=== PATIENT | male | born 1980 | race Caucasian/White ===

== ENCOUNTER 2016-11-25 10:53 | Inpatient (IN) | payer MEDICAID, OTHER ==
[2016-11-25 11:14] VITALS: RESP 18
--- NOTE | 2016-11-25 12:47 | C.PDOC ---
History Of Present Illness 36 yr old male presents to the ER requesting detox from heroin. Patient reports last use was today around 6am. Otherwise, Patient denies SI, HI, hallucinations , chest pain, palpitations, SOB, nausea, vomiting, abdominal pain, headache, weakness or numbness. Time Seen by Provider: 11/25/16 11:44 Chief Complaint (Nursing): Substance Abuse History Per: Patient History/Exam Limitations: no limitations Onset/Duration Of Symptoms: Days, Sudden Onset (Last use 6am) Current Symptoms Are (Timing): Still Present Suicide/Self Injury Attempted (Context): None Past Medical History Reviewed: Historical Data, Nursing Documentation, Vital Signs Vital Signs: Last Vital Signs Temp 98.3 F 11/25/16 11:12 Pulse 69 11/25/16 11:12 Resp 18 11/25/16 11:12 BP 145/88 11/25/16 11:12 Pulse Ox 99 11/25/16 13:01 - Medical History PMH: Depression Family History: States: No Known Family Hx - Social History Hx Alcohol Use: No Hx Substance Use: Yes (heroin and crack) - Immunization History Hx Tetanus Toxoid Vaccination: No Hx Influenza Vaccination: No Hx Pneumococcal Vaccination: No Review Of Systems Except As Marked, All Systems Reviewed And Found Negative. Cardiovascular: Negative for: Chest Pain, Palpitations Respiratory: Negative for: Shortness of Breath Gastrointestinal: Negative for: Nausea, Vomiting, Abdominal Pain Neurological: Negative for: Weakness, Numbness, Headache Psych: Negative for: Suicidal ideation Physical Exam - Physical Exam Appears: Non-toxic, No Acute Distress Skin: Warm, Dry, No Rash Head: Atraumatic, Normacephalic Eye(s): bilateral: PERRL Ear(s): Bilateral: Normal Nose: No Flaring Oral Mucosa: Moist, No Drooling Throat: No Erythema, No Exudate, No Drooling Neck: Supple Chest: Symmetrical, No Tenderness Cardiovascular: Rhythm Regular, No Murmur Respiratory: No Decreased Breath Sounds, No Accessory Muscle Use, No Rales, No Rhonchi, No Stridor, No Wheezing Gastrointestinal/Abdominal: Soft, No Tenderness, No Distention, No Guarding, No Rebound Back: No CVA Tenderness Extremity: Normal ROM, No Pedal Edema, No Deformity, No Swelling Neurological/Psych: Oriented x3, Normal Speech, Normal Motor, Normal Sensation, Normal Reflexes ED Course And Treatment - Laboratory Results Result Diagrams: 11/25/16 12:50 11/25/16 12:50 Lab Interpretation: Normal O2 Sat by Pulse Oximetry: 99 (RA) Pulse Ox Interpretation: Normal Progress Note: AT 12:51, pt appears appropriate, not in any apparent distress. Afebrile, hemodynamicaly stable. Non-toxic. Neuorlogicaly intact. Blood work review, pt is medically cleared for psych eval and further tx/admission. AT 13: 20, Pt was seen by older worker specialist Corinna and admission arranged to s/o Dr. Larsen with Dx: Acute opioid dependance. Medical Decision Making Medical Decision Making: PLAN: * Alcohol Serum * Drug Screen * CBC * CMP * Urinalysis Disposition - Disposition Disposition: HOSPITALIZED Disposition Time: 13:40 Condition: STABLE Forms: [facility] ([facility]) - Clinical Impression Clinical Impression: Opioid dependence - PA / DIRECTOR GEOTHERMAL OPERATIONS / Resident Statement MD/DO has reviewed & agrees with the documentation as recorded. - Scribe Statement The provider has reviewed the documentation as recorded by the Scribe Scarlet Mitchell All medical record entries made by the Scribe were at my direction and personally dictated by me. I have reviewed the chart and agree that the record accurately reflects my personal performance of the history, physical exam, medical decision making, and the department course for this patient. I have also personally directed, reviewed, and agree with the discharge instructions and disposition.
[2016-11-25 12:55] LABS: BASO # 0.1 K/uL (0.0-0.2); BASO % 0.8 % (0.0-2.0); EOS % 0.6 % (0.0-4.0); LYMPH # 2.2 K/uL (1.0-4.3); LYMPH % 28.8 % (20.0-40.0); MEAN CELL VOLUME 90.5 fL (80.0-94.0); MEAN CORPUSCULAR HEMOGLOBIN 30.9 pg (27.0-31.0); MEAN CORPUSCULAR HGB CONC 34.1 g/dL (33.0-37.0); MEAN PLATELET VOLUME 7.8 fL (7.2-11.7); MONO # 0.5 K/uL (0.0-0.8); MONO % 6.9 % (0.0-10.0); RED CELL DISTRIBUTION WIDTH 13.5 % (11.5-14.5); WHITE BLOOD COUNT 7.6 K/uL (4.8-10.8)
[2016-11-25 12:59] LABS: RBC URINE 1 /hpf (0-3); URINE BILIRUBIN NEGATIVE (NEGATIVE); URINE BLOOD NEGATIVE (NEGATIVE); URINE COLOR Yellow (YELLOW); URINE GLUCOSE (UA) NORMAL (Normal); URINE KETONE NEGATIVE (NEGATIVE); URINE LEUKOCYTE ESTERASE NEG Leu/uL (Negative); URINE PROTEIN NEGATIVE (NEGATIVE); WBC URINE 1 /hpf (0-5)
[2016-11-25 13:03] LABS: CHLORIDE 102 mmol/L (98-107); POTASSIUM 3.9 mmol/L (3.6-5.2); SODIUM 142 mmol/L (132-148)
[2016-11-25 13:06] LABS: ALB/GLOB RATIO 1.3 (1.0-2.1); ALKALINE PHOSPHATASE 91 U/L (38-126); ALT/SGPT 55 U/L (21-72); AST/SGOT 34 U/L (17-59); BILIRUBIN,TOTAL 0.7 mg/dL (0.2-1.3); BLOOD UREA NITROGEN 10 mg/dL (9-20); CALCIUM 9.3 mg/dl (8.6-10.4); CARBON DIOXIDE 27 mmol/L (22-30); GFR AFRICAN-AMERICAN > 60; GLUCOSE,RANDOM 66 mg/dL (75-110); TOTAL PROTEIN 7.1 g/dL (6.3-8.3)
[2016-11-25 13:07] LABS: ALCOHOL SERUM < 10 mg/dl (0-10)
--- NOTE | 2016-11-25 16:36 | PCM.BM ---
<Rupinder Gonzales - Last Filed: 11/25/16 16:36> Treatment Plan Problems - Problems identified on initial assessmt Potential for opiate withdrawal Date Initiated: 11/25/16 Time Initiated: 16:36 Assessment reference: NA Status: Active Priority: 1 Treatment assets and liabiliti Patient Assests: ADL independent, negotiates basic needs, cognitively intact Patient Liabilities: substance abuse - Milieu Protocol Maintain good personal hygiene: daily Encourage regular showers, daily Remind patient to perform daily oral care, daily Assist patient to perform ADL's Maintain personal safety: every shift Educate patient to report safety concerns to staff, every shift Monitor environment for contraband/sharps Medication safety: Monitor for expected outcome, potential side effects: every shift, Assess barriers to learning: every shift, Assess readiness for medication education: every shift <Mayelin Larsen - Last Filed: 11/26/16 09:45> - Diagnosis (1) Opioid dependence Status: Acute Interventions: 11/26/16 09:45 * Assess 7x/week regarding severity of withdrawal * Educate regarding risks, benefits, side effects and alternatives of medications * Use Motivational Interviewing for abstinence * Use CBT for relapse prevention * Medication management for withdrawal symptoms * Encourage medication assisted treatment * <Diamante Prieto - Last Filed: 11/26/16 11:05> Family Contact Family involvement: Toddy/SO not involved Family contact: Patient declines to allow family contact at present - Goals for Treatment Patient goals for treatment: Complete detox and transition to [facility]. Discharge/Continuing Care - Education Needs Education Needs: Patient Medication, Patient Diagnosis/Disease Process, Patient Coping Skills, Patient Anger Management skills, Patient Placement options, Patient Community resources - Discharge Discharge Criteria: Normal sleep pattern, No longer exhibiting s/s of withdrawal , Reduction of target symptoms Discharge to:: Substance Abuse Rehab - Treatment Team Participation Patient/Family/SO Statement: 11/26/16 11:05 "I wanna go back to [facility]. I went to them 1st but they said I needed to detox and then go there." Discussed with Family/SO: No Was Patient/Family/SO present at Treatment Team Meeting: Yes
[2016-11-25] MEDS ORDERED: Aluminum Hydroxide/Magnesium Hydroxide Susp (30 mL) PO PRN (21:46)
--- NOTE | 2016-11-26 12:50 | PCM.PSYCH ---
Initial Psychiatric Evaluation - Initial Psychiatric Evaluation Type of Admission: Voluntary Legal Status: Capacity Chief Complaint (in patient's own words): "I need to stop this" History of Present Illness and Precipitating Events: The patient is seen, chart reviewed and case discussed. This is a 36-year-old male, single with 2 children aged 4 and 5, unemployed the patient moved from [place] to [facility] and he was told to go to rehabilitation at [facility]. Staff at [facility] brought to him to our hospital for detox before he begins to rehabilitation. The patient admits to using 10-12 bags of IV heroine and he started when he was 10 years old. He also smokes crack cocaine daily for the last 6 years, marijuana "many years" and cigarettes 1 pack per day. He denies alcohol and other drug use. He has never been to methadone or Suboxone programs but he was in detox twice while in [facility]. He denies psych symptoms. Past psych history: Denies Family psych history: Denies Medical history: 3 surgeries in right knee Current Medications: Active Medications Generic Name Dose Route Start Last Admin Trade Name Freq PRN Reason Stop Dose Admin Al Hydrox/Mg Hydrox/Simethicone 30 ml 11/25/16 21:46 Maalox 30 Ml PO TID PRN Indigestion / Heartburn Clonidine HCl 0.1 mg 11/25/16 21:46 Catapres PO Q8 PRN COWS Score More or Equal to 5 Hydroxyzine HCl 50 mg 11/25/16 21:47 11/25/16 22:03 Atarax PO 50 mg Q6H PRN Administration Anxiety Ibuprofen 600 mg 11/25/16 21:47 Motrin Tab PO Q6H PRN Pain, moderate (4-7) Loperamide HCl 2 mg 11/25/16 21:46 Imodium PO Q8 PRN Diarrhea Methadone HCl 15 mg 11/26/16 09:45 11/26/16 10:08 Methadone PO 11/30/16 09:44 15 mg Q24H XIOMY Administration Taper Nicotine 1 patch 11/25/16 17:15 11/26/16 10:08 Nicoderm Cq TD 1 patch DAILY XIOMY Administration Ondansetron HCl 4 mg 11/25/16 21:46 Zofran Tab PO Q8 PRN Nausea/Vomiting Trazodone HCl 50 mg 11/25/16 21:26 11/25/16 22:03 Desyrel PO 50 mg HS PRN Administration Insomnia Past Psychiatric History - Past Psychiatric History Previous Treatment History: None Pertinent Medical Hx (Current Medical&Sleep Prob, Allergies): Allergies Allergy/AdvReac Type Severity Reaction Status Date / Time No Known Allergies Allergy Verified 11/25/16 11:14 No Known Home Med 11/25/16 Review of Systems - Neurological Neurological: UNREMARKABLE - Psychiatric Psychiatric: Abnormal Sleep Pattern, Anxiety, Difficulty Concentrating. absent : Depression, Hallucinations, Homicidal Ideation, Paranoia, Suicidal Ideation Mental Status Examination - Personal Presentation Personal Presentation: Looks stated age - Affect Affect: Constricted - Motor Activity Motor Activity: Calm - Reliability in Providing Information Reliability in Providing Information: Good - Speech Speech: Organized - Mood Mood: Anxious - Formal Thought Process Formal Thought Process: No Impairment - Cognitive Functions Orientation: Person, Place, Situation, Time Sensorium: Alert Attention/Concentration: Attentive Estimate of Intelligence: Average Judgement: Intact, as evidence by: Insight regarding need for hospitalization Memory: Recent intact, as evidence by: Ability to recall events of the day, Remote intact, as evidenced by: Abilit to recall sig. life events - Risk Risk: Withdrawal, Diminished functioning - Strength & Assets Inventory Strength & Assets Inventory: Cooperative - Limitations Limitations: Living alone DSM 5 DX - DSM 5 DSM 5 Diagnosis: Opioid withdrawal Opioid use d/o - severe Cocaine use d/o - severe Tobacco use d/o - severe - Recommended/Plan of Treatment Treatment Recommendations and Plan of Treatment: Subutex detox As needed medications Gabapentin for augmentation Attend groups and activities Supportive therapy and psychoeducation [place] for abstinence CBT for relapse prevention Encourage MAT Refer to rehab or IOP Attend self-help groups as well 34 min Projected ELOS: 4-5 days Prognosis: Good with treatment Discharge Plan and Discharge Criteria: No wdw sxs Refer back to rehab - Smoking Cessation Smoking Cessation Initiated: Yes
--- NOTE | 2016-11-27 12:33 | PCM.PYCHPN ---
Psychiatric Progress Note - Psychiatric Progress Note Patient seen today, length of contact: 16 min Patient Chief Complaint: "I am better" Problems Identified/Issues Discussed: The pt is seen, chart reviewed, case discussed with staff. The pt is compliant with medications and reports no side-effects. Symptoms are improving but needs more time to stabilize. After care discussed, support and psychoeducation given. Medication Change: Yes (detox changes daily) Medical Record Reviewed: Yes Mental Status Examination - Cognitive Function Orientation: Person, Place, Situation, Time Memory: Intact Attention: WNL Concentration: Poor Association: WNL Fund of Knowledge: WNL - Mood Mood: Anxious - Affect Affect: Constricted - Speech Speech: Appropriate - Formal Thought Process Formal Thought Process: No Impairment - Suicidal Ideation Suicidal Ideation: No - Homicidal Ideation Homicidal Ideation: No Goal/Treatment Plan - Goal/Treatment Plan Need for Continued Stay: Discharge may exacerbated symptoms, Severe functional impairment Progress Toward Problem(s) and Goals/Treatment Plan: Subutex detox As needed medications Gabapentin for augmentation Attend groups and activities Supportive therapy and psychoeducation [place] for abstinence CBT for relapse prevention Encourage MAT Refer to rehab or IOP Attend self-help groups as well 34 min Estimated Date of D/C: 11/29/16
[2016-11-27 14:44] VITALS: O2SAT 99
--- NOTE | 2016-11-28 08:43 | PCM.PYCHDC ---
Mental Status Examination - Mental Status Examination Orientation: Person, Place, Situation, Time Memory: Intact Mood: Neutral Affect: Broad Speech: Appropriate Attention: WNL Concentration: WNL Association: WNL Fund of Knowledge: WNL Formal Thought Process: No Impairment Suicidal Ideation: No Current Homicidal Ideation?: No Discharge Summary - Discharge Note Reason for Hospitalization: Heroin detox Consultations:: List each consultation separately and include: 1. Reason for request. 2. Findings. 3. Follow-up Summary of Hospital Course include:: 1. Description of specific treatment plan utilized for patients during their course of treatmen. 2. Summarize the time- course for resolution of acute symptoms and/or regressed behaviors. 3. Describe issues identified and worked on during hospitalization. 4. Describe medication utilized. 5. Describe medical problems identified and treated. 6. Reassessment of suicide risk Summary of Hospital Course: The patient is seen, chart reviewed and case discussed. On admission: This is a 36-year-old male, single with 2 children aged 4 and 5, unemployed the patient moved from [place] to [facility] and he was told to go to rehabilitation at [facility]. Staff at [facility] brought to him to our hospital for detox before he begins to rehabilitation. The patient admits to using 10-12 bags of IV heroine and he started when he was 10 years old. He also smokes crack cocaine daily for the last 6 years, marijuana "many years" and cigarettes 1 pack per day. He denies alcohol and other drug use. He has never been to methadone or Suboxone programs but he was in detox twice while in correction. He denies psych symptoms. Past psych history: Denies Family psych history: Denies Medical history: 3 surgeries in right knee Hospital course: The pt was admitted and started on treatment with psychotherapy, support, psychoeducation and medications. NE and CBT used. The pt attended groups and activities, as well as milieu therapy. All the risks and benefits of medications are discussed and the patient understood and agreed. The pt improved with the treatments provided. After care discussed with the patient. He went to [facility] - Final Diagnosis (DSM 5) Condition upon Discharge: STABLE DSM 5: Opioid withdrawal Opioid use d/o - severe Cocaine use d/o - severe Tobacco use d/o - severe Disposition: REHAB FACILITY/REHAB UNIT Follow-up Treatment Plan: Continue below medications after discharge. Follow after care plan as discussed. Use relapse prevention skills Return to ER or call 911 if suicidal, homicidal or symptoms relapse. Stay away from stress, alcohol and drugs. See primary doctor regularly and get labs. Prescriptions/Medication Reconciliation: hydrOXYzine HCl [Atarax] 50 mg PO Q6H PRN #60 tab PRN Reason: Anxiety traZODone [Desyrel] 100 mg PO HS PRN #30 tab PRN Reason: Insomnia - Smoking Cessation Smoking Cessation Medication prescribed: No - Antipsychotic Medications Pt discharged on 2 or more routine antipsychotic medications: No
[2016-11-28 08:45] VITALS: BP 115/63; PULSE 65; TEMP 98.1
== END 2016-11-28 09:45 | disposition home or self-care (01) | DRG 897 ==
LOC: C.ER 10:53 → C.7D 13:40
PROVIDERS: ADMIT Psychiatry & Neurology Psychiatry; ATTEND Psychiatry & Neurology Psychiatry
PROC: HZ2ZZZZ Detoxification Services for Substance Abuse Treatment (ICD-10-PCS; principal; 2016-11-25)
PROC: GZ56ZZZ Individual Psychotherapy, Supportive (ICD-10-PCS; 2016-11-25)
DX: F11.23 Opioid dependence with withdrawal (principal); F17.210 Nicotine dependence, cigarettes, uncomplicated; F14.90 Cocaine use, unspecified, uncomplicated; F12.10 Cannabis abuse, uncomplicated